=== PATIENT | female | born 1955 | race Two or more races ===

== ENCOUNTER 2023-01-11 16:33 | Emergency (ER) | payer OTHER ==
[2023-01-11 16:43] VITALS: BP 153/83; PULSE 85; RESP 18; TEMP 97.6; BMI 29.6
== END 2023-01-11 19:25 | disposition home or self-care (01) ==
LOC: JER 16:33
DX: M25.572 Pain in left ankle and joints of left foot (principal); R22.42 Localized swelling, mass and lump, left lower limb
CPT/HCPCS: 93971-TC; 99284-25

== ENCOUNTER 2023-09-18 18:37 | Observation (INO) | payer OTHER ==
[2023-09-18 18:45] VITALS: BMI 29.2
[2023-09-18 20:18] LABS: BASO % 0.5 % (0-2.0); EOS % 1.2 % (0-4.5); HEMOGLOBIN 12.5 GM/dL (10.7-15.3); LYMPH % 25.5 % (8-40); MCH 30.9 pg (25.7-33.7); MCHC 34.6 g/dl (32.0-36.0); MEAN CELL VOLUME 89.3 fl (80-96); MEAN PLT VOLUME 7.6 fl (7.5-11.1); MONO % 8.4 % (3.8-10.2); NEUT % 64.4 % (42.8-82.8); PLATELET COUNT 306 10^3/uL (134-434); RBC 4.04 M/mm3 (3.60-5.2); RDW 14.7 % (11.6-15.6)
[2023-09-18 20:36] LABS: INR 1.03 (0.83-1.09)
[2023-09-18 20:38] LABS: CALCIUM 9.4 mg/dL (8.5-10.1)
[2023-09-18 20:39] LABS: ACTIVATED PTT 27.3 SECONDS (25.2-36.5); ALBUMIN 4.1 g/dl (3.4-5.0); MAGNESIUM 2.9 mg/dL (1.8-2.4)
[2023-09-18 20:40] LABS: POTASSIUM 3.8 mmol/L (3.5-5.1)
[2023-09-18 20:42] LABS: CREATININE 1.7 mg/dL (0.55-1.3)
[2023-09-18 20:44] LABS: BILIRUBIN,TOTAL 0.8 mg/dL (0.2-1); TOT PROT 7.9 g/dl (6.4-8.2)
[2023-09-18] MEDS ORDERED: ASPIRIN 81 MG CHEWABLE TABLETS ONE (21:18)
[2023-09-18] MEDS: ASPIRIN 81 MG CHEWABLE TABLETS PO ONE (21:31)
[2023-09-18] MEDS: SODIUM CHLORIDE 0.9% 500 ML INFUS.BAG IV ONE (21:31)
[2023-09-18 21:52] LABS: POTASSIUM 3.5 mmol/L (3.5-5.1)
[2023-09-18 21:53] LABS: CALCIUM 9.1 mg/dL (8.5-10.1)
[2023-09-18 21:54] LABS: BLOOD UREA NITROGEN 35.7 mg/dL (7-18)
[2023-09-18 21:57] LABS: CREATININE 1.7 mg/dL (0.55-1.3)
[2023-09-18 22:50] VITALS: RESP 16
[2023-09-19 08:31] LABS: BASO % 0.7 % (0-2.0); EOS % 3.4 % (0-4.5); HEMATOCRIT 36.3 % (32.4-45.2); HEMOGLOBIN 12.1 GM/dL (10.7-15.3); LYMPH % 33.9 % (8-40); MCH 30.3 pg (25.7-33.7); MCHC 33.5 g/dl (32.0-36.0); MEAN CELL VOLUME 90.4 fl (80-96); MEAN PLT VOLUME 8.2 fl (7.5-11.1); MONO % 11.1 % (3.8-10.2); NEUT % 50.9 % (42.8-82.8); PLATELET COUNT 288 10^3/uL (134-434); RBC 4.01 M/mm3 (3.60-5.2); RDW 14.3 % (11.6-15.6); WHITE BLOOD COUNT 7.1 K/mm3 (4.0-10.0)
[2023-09-19 10:38] LABS: BLOOD UREA NITROGEN 31.3 mg/dL (7-18); CALCIUM 9.4 mg/dL (8.5-10.1); CREATININE 1.5 mg/dL (0.55-1.3); POTASSIUM 3.6 mmol/L (3.5-5.1)
[2023-09-19 17:30] VITALS: BP 121/97; PULSE 94; TEMP 97.7
== END 2023-09-19 18:03 | disposition home or self-care (01) ==
LOC: JER 18:37 → JERBED 20:56
PROVIDERS: ADMIT Internal Medicine; ATTEND Family Medicine
PROC: 3E0337Z Introduction of Electrolytic and Water Balance Substance into Peripheral Vein, Percutaneous Approach (ICD-10-PCS; principal; 2023-09-18)
DX: N17.9 Acute kidney failure, unspecified (principal); E11.9 Type 2 diabetes mellitus without complications; R77.8 Other specified abnormalities of plasma proteins; E78.5 Hyperlipidemia, unspecified; I10 Essential (primary) hypertension; R42 Dizziness and giddiness
CPT/HCPCS: 36415; 71045-TC-FY; 80048; 80053; 83735; 84443; 84484; 85025; 85610; 85730; 93005; 93010; 99285-25; G0378